=== PATIENT | male | born 1990 | race American Indian/Alaskan Native ===

== ENCOUNTER 2017-04-05 08:51 | Emergency (ER) | payer OTHER ==
[2017-04-05 09:15] VITALS: BP 175/105
[2017-04-05 09:41] LABS: Basophils % (Auto) 0.6 % (0.0-1.8); Eosinophils % (Auto) 1.1 % (0.0-4.3); Hematocrit 43.2 % (35.5-45.6); Hemoglobin 14.8 gm/dl (11.8-15.2); Mean Corpuscular HGB Conc 34 % (32-34); Mean Corpuscular Hemoglobin 31 pg (28-32); Mean Corpuscular Volume 91 fl (84-94); Platelet Count 293 K/mm3 (140-440); Red Blood Count 4.74 M/mm3 (3.65-5.03); Red Cell Distribution Width 13.2 % (13.2-15.2); White Blood Count 13.1 K/mm3 (4.5-11.0)
[2017-04-05 09:56] LABS: Anion Gap 17 mmol/L; BUN/Creatinine Ratio 16; Blood Urea Nitrogen 14 mg/dL (9-20); Carbon Dioxide 26 mmol/L (22-30); Chloride 100.4 mmol/L (98-107); Glucose 82 mg/dL (75-100); Potassium 4.2 mmol/L (3.6-5.0); Sodium 139 mmol/L (137-145)
[2017-04-05] MEDS ORDERED: PEPCID IV ONE (12:01)
[2017-04-05] MEDS ORDERED: NACL 0.9% 1000 ML 1,000 ML IV ONE (12:01)
--- NOTE | 2017-04-05 12:12 | Emergency Department Report ---
Chief Complaint: Dizziness Stated Complaint: FLU LIKE SYMPTOMS Time Seen by Provider: 04/05/17 11:42 - HPI History of Present Illness: Patient is a 26-year-old -[place] male who is presenting with dizziness. Patient states he was driving this morning and had to extract puller because he was dizzy and also felt lightheaded. Patient also is reporting some spinning sensation as well. Patient states he's been eating well has had no nausea vomiting diarrhea no recent heavy alcohol use. Patient also states he has some increased GERD and acid reflux. Patient seems reluctant to answer some questions. Patient was slow to respond to whether he has had a history of recent alcohol states he is last drink was 2 days ago. Patient also very slow to respond to questions or drug use. Patient denies any fever or current nausea vomiting diarrhea body aches at this time. Patient also denies cough sore throat ache - Exam Vital Signs: Vital Signs 04/05/17 09:12 Temperature 98.5 F Pulse Rate 125 H Respiratory 16 Rate Blood Pressure 175/105 O2 Sat by Pulse 99 Oximetry Physical Exam: Focused physical exam patient is alert and oriented 3 lungs clear to auscultation abdomen soft nontender heart tones normal neuro grossly normal as well MSE screening note: Focused history and physical exam performed. Due to findings the following was ordered: Laboratory studies from nursing protocol been reviewed patient has a very mild leukocytosis. Patient will be given IV fluids drug screen will be checked as well. Differential includes viral illness alcohol intoxication and alcohol related dehydration GERD acid reflux ED Medical Decision Making - Lab Data Result diagrams: 04/05/17 09:29 04/05/17 09:29 ED Disposition for MSE Condition: Stable Referrals: PRIMARY CARE, [Primary Care Provider] - 3-5 Days
[2017-04-05 12:15] LABS: Urine Drugs of Abuse Note Disclamer
--- NOTE | 2017-04-05 12:41 | Emergency Department Report ---
ED Dizziness HPI - General Chief Complaint: Dizziness Stated Complaint: FLU LIKE SYMPTOMS Time Seen by Provider: 04/05/17 11:42 Source: patient Mode of arrival: Ambulatory Limitations: No Limitations - History of Present Illness Initial Comments: pt is a 26 y/o aam who presents for dizziness sudden onset while driving home from night of marijuana etho and drinking 2 energy drinks while driving, symptoms caused pt to wool puller because he didn't feel right pt deneis cp no sob no n/v dizziness is resolved at this time there is no fever or chills no cough. MD Complaint: dizziness Onset/Timin -: hour(s) Timing: sudden onset Description: "room spinning" History of Same: No History of Trauma: No Severity: moderate Improves With: nothing Worsens With: movement Associated Symptoms: denies other symptoms - Related Data Allergies Allergy/AdvReac Type Severity Reaction Status Date / Time shellfish derived Allergy Rash Verified 04/05/17 09:15 ED Review of Systems ROS: Stated complaint: FLU LIKE SYMPTOMS Other details as noted in HPI Constitutional: denies: chills, fever Eyes: denies: eye pain, eye discharge, vision change ENT: denies: ear pain, throat pain Respiratory: denies: cough, shortness of breath, wheezing Cardiovascular: denies: chest pain, palpitations Endocrine: no symptoms reported Gastrointestinal: denies: abdominal pain, nausea, diarrhea Genitourinary: denies: urgency, dysuria Musculoskeletal: denies: back pain, joint swelling, arthralgia Skin: denies: rash, lesions Neurological: other (dizziness ). denies: headache, weakness, paresthesias Psychiatric: denies: anxiety, depression Hematological/Lymphatic: denies: easy bleeding, easy bruising ED Past Medical Hx - Past Medical History Previous Medical History?: No - Social History Smoking Status: Current Every Day Smoker Substance Use Type: Alcohol, Marijuana ED Physical Exam - General Limitations: No Limitations General appearance: alert, in no apparent distress - Head Head exam: Present: atraumatic, normocephalic - Eye Eye exam: Present: normal appearance, PERRL, EOMI Pupils: Present: normal accommodation - ENT ENT exam: Present: mucous membranes moist, TM's normal bilaterally - Neck Neck exam: Present: normal inspection, full ROM. Absent: lymphadenopathy, thyromegaly - Respiratory Respiratory exam: Present: normal lung sounds bilaterally. Absent: respiratory distress, wheezes, rhonchi, chest wall tenderness - Cardiovascular Cardiovascular Exam: Present: regular rate, normal rhythm, normal heart sounds. Absent: systolic murmur, diastolic murmur, rubs, gallop - GI/Abdominal GI/Abdominal exam: Present: soft, normal bowel sounds. Absent: distended, tenderness, guarding, rebound, bruit, pulsatile mass, hernia - Rectal Rectal exam: Present: deferred - exam: Present: normal inspection - Extremities Exam Extremities exam: Present: normal inspection - Back Exam Back exam: Present: normal inspection - Neurological Exam Neurological exam: Present: alert, oriented X3, CN II-XII intact, normal gait, reflexes normal. Absent: motor sensory deficit - Psychiatric Psychiatric exam: Present: normal affect, normal mood - Skin Skin exam: Present: warm, dry, intact, normal color. Absent: rash ED Course Vital Signs 04/05/17 09:12 Temperature 98.5 F Pulse Rate 125 H Respiratory 16 Rate Blood Pressure 175/105 O2 Sat by Pulse 99 Oximetry ED Medical Decision Making - Lab Data Result diagrams: 04/05/17 09:29 04/05/17 09:29 Laboratory Tests 04/05/17 04/05/17 04/05/17 09:29 09:29 12:13 WBC 13.1 H RBC 4.74 Hgb 14.8 Hct 43.2 MCV 91 MCH 31 MCHC 34 RDW 13.2 Plt Count 293 Lymph % (Auto) 15.5 [place] % (Auto) 7.5 H Eos % (Auto) 1.1 Baso % (Auto) 0.6 Lymph # 2.0 [place] # 1.0 H Eos # 0.1 Baso # 0.1 Seg Neutrophils % 75.3 H Seg Neutrophils # 9.9 H Sodium 139 Potassium 4.2 Chloride 100.4 Carbon Dioxide 26 Anion Gap 17 BUN 14 Creatinine 0.9 Estimated GFR > 60 BUN/Creatinine Ratio 16 Glucose 82 Calcium 9.0 Urine Opiates Screen Presumptive negative Urine Methadone Screen Presumptive negative Ur Barbiturates Screen Presumptive negative Ur Phencyclidine Scrn Presumptive negative Ur Amphetamines Screen Presumptive negative U Benzodiazepines Scrn Presumptive negative Urine Cocaine Screen Presumptive negative - EKG Data EKG shows normal: sinus rhythm Rate: normal - EKG Data When compared to previous EKG there are: previous EKG unavailable Interpretation: normal EKG enterp by ED attending 04/05/17 12:43 - Medical Decision Making pt is a 26 y/o aam who presents for dizziness sudden onset while driving home from night of marijuana etho and drinking 2 energy drinks while driving, symptoms caused pt to wool puller because he didn't feel right pt deneis cp no sob no n/v dizziness is resolved at this time there is no fever or chills no cough exam: pt neuro intac perrla eomi, a/o x 3 ent normal ,lungs clear bilat no wheezing pt is ambulatory gait is steady, labs noted : wbc: 13, cmp, ua normal, uds: pos thc, including patient counseled on substance abuse including etoh, marijuna and energy drinks plan: stop marijuana, etoh and energy drinks, hydrate as directed follow up your PCP as ordered, patient verbalized understanding and agreement with same. will dc to home in stable condition upon completion of ivfs. Critical care attestation.: If time is entered above; I have spent that time in minutes in the direct care of this critically ill patient, excluding procedure time. ED Disposition Clinical Impression: Dizziness, Marijuana use Disposition: DC-01 TO HOME OR SELFCARE Is pt being admited?: No Does the pt Need Aspirin: No Condition: Stable Instructions: Medicinal Use of Cannabis (ED) Referrals: PRIMARY CARE, [Primary Care Provider] - 3-5 Days Forms: Work/School Release Form(ED) Time of Disposition: 12:49
== END 2017-04-05 13:05 | disposition home or self-care (01) ==
LOC: ED 08:51
DX: R42 Dizziness and giddiness (principal); F12.10 Cannabis abuse, uncomplicated; F17.200 Nicotine dependence, unspecified, uncomplicated; Z91.013 Allergy to seafood
CPT/HCPCS: 36415; 80048; 80307; 85025; 93005; 93010; 96361; 96374; 99283; J7030

== ENCOUNTER 2020-10-12 14:26 | Emergency (ER) | payer OTHER ==
[2020-10-12 15:21] VITALS: BP 181/115
--- NOTE | 2020-10-12 16:22 | Emergency Department Report ---
ED General Adult HPI - General Chief complaint: Skin Rash Stated complaint: FACIAL SWELLILNG/ITICHING Time Seen by Provider: 10/12/20 15:23 Source: patient Mode of arrival: Ambulatory Limitations: No Limitations - History of Present Illness Initial comments: 30-year-old -[place] male patient presents with complaints of left facial swelling starting yesterday. He denies any fever/chills/sweats. He states there was initially an itchy rash to his face that has now resolved after Benadryl. He does report some left upper dental pain that has been intermittent for some time. He rates his facial pain at 7/10 in severity and states it did not improve with Benadryl. Patient is not currently following with a dental specialist. Blood pressure noted to be significantly elevated-patient states he stopped taking his amlodipine and hydrochlorothiazide approximately 1 year ago and has not followed up with his primary care doctor since. He denies any headache, numbness/tingling/weakness in his limbs, vision changes, dizziness, chest pain, shortness of breath, or difficulty with speech/ambulation. - Related Data Previous Rx's Medication Instructions Recorded Last Taken Type Clindamycin [Clindamycin CAP] 300 mg PO Q6H 10 Days #40 capsule 10/12/20 Unknown Rx Ibuprofen [Motrin 800 MG tab] 800 mg PO Q8HR PRN #20 tablet 10/12/20 Unknown Rx amLODIPine 5 mg PO DAILY #60 tab 10/12/20 Unknown Rx Allergies Allergy/AdvReac Type Severity Reaction Status Date / Time shellfish derived Allergy Rash Verified 04/05/17 09:15 ED Review of Systems ROS: Stated complaint: FACIAL SWELLILNG/ITICHING Other details as noted in HPI Constitutional: denies: diaphoresis, fever, malaise ENT: dental pain. denies: throat pain Respiratory: denies: cough, shortness of breath Cardiovascular: denies: chest pain Gastrointestinal: denies: abdominal pain, nausea, vomiting Neurological: denies: headache, numbness, paresthesias, abnormal gait Hematological/Lymphatic: denies: swollen glands ED Past Medical Hx - Past Medical History Previous Medical History?: Yes Hx Hypertension: Yes - Surgical History Additional Surgical History: ACL - Social History Smoking Status: Current Every Day Smoker - Medications Home Medications: Home Medications Medication Instructions Recorded Confirmed Last Taken Type Clindamycin [Clindamycin CAP] 300 mg PO Q6H 10 Days #40 capsule 10/12/20 Unknown Rx Ibuprofen [Motrin 800 MG tab] 800 mg PO Q8HR PRN #20 tablet 10/12/20 Unknown Rx amLODIPine 5 mg PO DAILY #60 tab 10/12/20 Unknown Rx ED Physical Exam - General Limitations: No Limitations General appearance: alert, in no apparent distress - Head Head exam: Present: atraumatic, normocephalic - Eye Eye exam: Present: normal appearance - Expanded ENT Exam Expanded 1 - Dental Tenderness (With mild overlying facial swelling noted and tenderness to palpation) - Neck Neck exam: Present: normal inspection - Respiratory Respiratory exam: Absent: respiratory distress - Cardiovascular Cardiovascular Exam: Present: regular rate, normal rhythm - Neurological Exam Neurological exam: Present: alert, oriented X3 - Psychiatric Psychiatric exam: Present: normal affect, normal mood - Skin Skin exam: Present: warm, dry, intact, normal color. Absent: rash, cyanosis, diaphoretic, erythema ED Course Vital Signs 10/12/20 15:17 Temperature 98.6 F Pulse Rate 104 H Respiratory 15 Rate Blood Pressure 181/115 O2 Sat by Pulse 100 Oximetry ED Medical Decision Making - Medical Decision Making 30-year-old -[place] male patient presents with complaints of left facial swelling starting yesterday. He denies any fever/chills/sweats. He states there was initially an itchy rash to his face that has now resolved after Benadryl. He does report some left upper dental pain that has been intermittent for some time. He rates his facial pain at 7/10 in severity and states it did not improve with Benadryl. Patient is not currently following with a dental specialist. Blood pressure noted to be significantly elevated-patient states he stopped taking his amlodipine and hydrochlorothiazide approximately 1 year ago and has not followed up with his primary care doctor since. He denies any headache, numbness/tingling/weakness in his limbs, vision changes, dizziness, chest pain, shortness of breath, or difficulty with speech/ambulation. Dental infection with facial swelling noted on exam. Will treat with clindamycin. Patient given refill for amlodipine informed of the importance of follow-up with his PCP. Patient is to follow-up with a dental specialist within 2 to 3 days. Heart rate rechecked at 87. Patient is afebrile, well-appearing, and stable for discharge home. Strict return precautions discussed in detail with patient who verbalizes understanding. Critical care attestation.: If time is entered above; I have spent that time in minutes in the direct care of this critically ill patient, excluding procedure time. ED Disposition Clinical Impression: Dental infection, Hypertension, essential, benign Disposition: DC-01 TO HOME OR SELFCARE Is pt being admited?: No Condition: Stable Instructions: Dental Abscess, Managing Your Hypertension, Hypertension, Adult, Hypertension (ED) Prescriptions: amLODIPine 5 mg PO DAILY #60 tab Clindamycin [Clindamycin CAP] 300 mg PO Q6H 10 Days #40 capsule Ibuprofen [Motrin 800 MG tab] 800 mg PO Q8HR PRN #20 tablet PRN Reason: pain Referrals: PRIMARY CARE, [Primary Care Provider] - 3-5 Days Forms: Work/School Release Form(ED)
== END 2020-10-12 16:49 | disposition home or self-care (01) ==
LOC: ED 14:26
DX: K04.7 Periapical abscess without sinus (principal); I10 Essential (primary) hypertension; F17.200 Nicotine dependence, unspecified, uncomplicated; Z79.899 Other long term (current) drug therapy
CPT/HCPCS: 99281

== ENCOUNTER 2022-01-07 03:12 | Emergency (ER) | payer SELFPAY ==
[2022-01-07 06:19] VITALS: BP 166/101
== END 2022-01-07 13:00 | disposition left against medical advice (07) ==
LOC: ED 03:12
DX: S01.81XA Laceration without foreign body of other part of head, initial encounter (principal); Z53.21 Procedure and treatment not carried out due to patient leaving prior to being seen by health care provider; Y04.8XXA Assault by other bodily force, initial encounter; Y93.89 Activity, other specified; Y92.89 Other specified places as the place of occurrence of the external cause; Y99.8 Other external cause status